=== PATIENT | male | born 1980 | race Caucasian/White ===

== ENCOUNTER 2020-12-14 15:36 | Outpatient (REF) | payer OTHER, SELFPAY | END 2020-12-14 15:37 | disposition home or self-care (01) | LOC: HO.LAB 15:36 | PROVIDERS: PCP Internal Medicine; Visit Provider Surgery | DX: Z85.038 Personal history of other malignant neoplasm of large intestine (principal) | CPT/HCPCS: 36415; 82378 ==

== ENCOUNTER 2021-01-03 07:30 | Day surgery (SDC) | payer OTHER, SELFPAY ==
--- NOTE | 2021-01-02 10:22 | HO.ANESPROP2 ---
Documented by User: Oksana Swift NP 01/02/21 10:23 HPI - Anesthesia Eval Consult details Narrative: 40yo M for Colonoscopy, Poss Polypectomy PMFSH Active Problems Active Problems: All Active Problems (Updated 12/27/20 @ 14:27 by Roxy Shafer, [place]) History of colon cancer (Acute) Past Medical History Medical History Elevated cholesterol History of colon cancer Surgical History Surgical History History of colonoscopy History of excision of pilonidal cyst Social History Social History Patient Tobacco Use Status: Current everyday Tobacco user Advance Directives: No Advance Directives Information Provided: Yes (informational brochure mailed) Advance Directives on File: No Meds Allergies Allergy/AdvReac Type Severity Reaction Status Date / Time No Known Allergies Allergy Verified 01/03/21 07:42 [No Known Allergies*] Exam Exam Date and Time: January 02, 2021 1022 Height,Weight and Vital Signs: Height 5 ft 5 in Assessment and Plan Assessment Anesthesia Assessment: Chart Reviewed Documented by User: Gali Martinez MD 01/03/21 08:37 PMFSH Past Medical History Medical History Elevated cholesterol History of colon cancer Surgical History Surgical History History of colonoscopy History of excision of pilonidal cyst History of Problems with Anesthesia: No Social History Social History Patient Tobacco Use Status: Current everyday Tobacco user Advance Directives: No Advance Directives Information Provided: Yes (informational brochure mailed) Advance Directives on File: No Meds Allergies Allergy/AdvReac Type Severity Reaction Status Date / Time No Known Allergies Allergy Verified 01/03/21 07:42 [No Known Allergies*] Exam Airway Mallampati Class: II TM Dist: >3cm Neck ROM: Full Loose/Missing/Broken Teeth: No Heart: RRR Lungs: CTA Assessment and Plan Assessment Anesthesia Assessment: Anesthesia Plan Discussed Final Anesthetic Review History of Problems with Anesthesia: No NPO: Yes ASA Class: II Final Preanesthetic Review: Meds/Allgs Chart Reviewed, Consent Obtained/Reviewed and Anes Risks/Benef Reviewed Patient Risk: Low Procedure Risk: Low Anesthetic Plan Anesthetic Plan: MAC: Disposition: Standard PACU
[2021-01-03 07:45] VITALS: BMI 30.4
[2021-01-03 07:49] VITALS: BP 147/99; PULSE 77; RESP 16; TEMP 36.7; O2SAT 98
[2021-01-03] MEDS: Lactated Ringers 1,000 ML 100 ML IVCONT (07:59)
--- NOTE | 2021-01-03 08:20 | MHC.SHP ---
Pre-Procedural Eval Section A Date of Service: 01/03/21 Section B Chief Complaint: History of colon cancer Allergies: Allergies Allergy/AdvReac Type Severity Reaction Status Date / Time No Known Allergies Allergy Verified 01/03/21 07:42 [No Known Allergies*] Plan I have reviewed the history and physical and performed a pertinent physical examination on my patient. No changes have occurred unless specified.
[2021-01-03 09:13] VITALS: BP 134/88; PULSE 79; RESP 18; TEMP 36.9; O2SAT 99
--- NOTE | 2021-01-03 09:14 | P.OP_ITS ---
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 This was on a long stalk so had been following him with regular colonoscopies. He understands the technique of the procedure as well as the risks, benefits, and alternatives Was brought to the operating placed in left lateral decubitus position under monitored anesthesia care. A full digital rectal was done there were no palpable anal lesions. The tip of the colonoscope was gently introduced through the anal orifice advanced with insufflation all the cecum. The cecum was intubated. The cecum was identified by visualization of the ileocecal valve as well as the appendiceal orifice. The cecal mucosa was unremarkable. The scope was gradually withdrawn with careful examination of the entire colonic mucosa being done with scope withdrawal. The patient had very good bowel prep so it was unlikely that any lesion may have been missed. There was note of occasional diverticuli sigmoid. I carefully examined the area at the level 15 cm and visualize the tattoo marking from before. This was where the previous polyp was removed. I did not see any abnormal mucosa. There was no suggestion of any recurrence of the polyp or any lesion with multiple passes on this area. We continued to withdraw the scope all the way to the rectum. This was examined carefully as well. Anal shelf was unremarkable. The anal canal was un remarkable. The scope was then withdrawn completely with desufflation The patient tolerated procedure well. There were no complications noted. I will recommend repeating the scope in about 2-3 years for surveillance.
[2021-01-03 09:28] VITALS: BP 154/91; PULSE 56; RESP 18; TEMP 36.9; O2SAT 100
== END 2021-01-03 09:54 | disposition home or self-care (01) ==
PROVIDERS: PCP Internal Medicine; Visit Provider Surgery
PROC: 0DJD8ZZ Inspection of Lower Intestinal Tract, Via Natural or Artificial Opening Endoscopic (ICD-10-PCS; CPT 45378; principal; 2021-01-03 08:50)
DX: Z12.11 Encounter for screening for malignant neoplasm of colon (principal); Z85.038 Personal history of other malignant neoplasm of large intestine; K57.30 Diverticulosis of large intestine without perforation or abscess without bleeding
CPT/HCPCS: 45378

== ENCOUNTER → 2021-01-16 16:01 | Outpatient (BNVA) | payer OTHER, SELFPAY | PROVIDERS: PCP Internal Medicine; Visit Provider Surgery ==

== ENCOUNTER 2023-10-07 14:30 | Outpatient (AMB) | payer OTHER, SELFPAY ==
--- NOTE | 2023-10-07 14:35 | A.OFFVIS_ITS ---
Vital Signs 10/07/23 14:36 Height 5 ft 5 in Weight 201 lb BMI 33.4 Intake Visit Reasons: 2-3 year recall colonoscopy from 12/2020 Intake Note: This patient presents 2-3 year recall colonoscopy from 12/2020. Pt c/o; reports no complaints. [employer] Required: No Accompanied by: Self / Same As Patient Allergies No Known Allergies [No Known Allergies*] Allergy (Verified 10/07/23 14:37) Medication List - Last Reconciled 10/07/23 by Alexander Tom MD atorvastatin 40 mg PO DAILY lisinopril 20 mg PO DAILY sodium,potassium,mag sulfates 17.5-3.13-1.6 gram (Suprep Bowel Prep Kit) DILUTE; drink full amount early evening before AND next morning at least 2 hr before procedure; follow w 32 oz. water PO HPI HPI 2-3 year recall colonoscopy from 12/2020: Details: 43-year-old male here for a follow-up colonoscopy. He has a history of a malignant polyp on a stalk at level 20 cm removed endoscopically in 2014. We have been monitoring him with colonoscopy since then. His last colonoscopy was 2020 and this was unremarkable. He denies any GI complaints. He feels well overall. He does not have family history of colon cancer. [facility] Medical History Elevated cholesterol History of colon cancer Surgical History History of colonoscopy (~2020) History of excision of pilonidal cyst History of colonoscopy Social History Patient Tobacco Use Status: Current everyday Tobacco user Review of Systems Const Denies chills and Denies fever(s) Card Denies chest pain, Denies dyspnea and Denies dyspnea on exertion Resp Denies cough, Denies dyspnea and Denies dyspnea on exertion GI Denies hematochezia and Denies change in bowel habits Denies hematuria and Denies difficulty urinating Musc Denies back pain and Denies limited range of motion Neuro Denies focal weakness and Denies convulsions Psych Denies depression and Denies mood swings Physical Exam Vital Signs: BMI result Body Mass Index 33.4 Const General: comfortable and no acute distress Orientation/consciousness: patient oriented x3 Neck Neck: Yes no lymphadenopathy Resp Auscultation: clear to auscultation bilaterally Cardio Rhythm: regular rhythm GI Palpation (GI): Soft to palpation, nontender and no guarding Neuro General: patient oriented x3 Assessment & Plan Assessment & Plan (1) History of colon cancer: Comment: colon polyp removed endoscopically in 2014 (tubular adenoma)-subsequent follow- up colonoscopies Code(s): Z85.038 - Personal history of other malignant neoplasm of large intestine Category: Medical Plan: He had a malignant rectal polyp removed from the sigmoid colon in 2014. He has been undergoing regular colonoscopies for surveillance I reviewed with him the technique of colonoscopy. I discussed the risks including but not limited to bleeding and perforation, as well as the benefits and alternatives He understands and wants to proceed. Coding Level of Care Code New Pt Level 3 (69860) Diagnoses History of colon cancer Z85.038
[2023-10-07 14:36] VITALS: BMI 33.4
== END 2023-10-07 15:22 | disposition home or self-care (01) ==
PROVIDERS: PCP Internal Medicine; Visit Provider Surgery
DX: Z85.038 Personal history of other malignant neoplasm of large intestine (principal)
CPT/HCPCS: 99213

== ENCOUNTER → 2023-10-07 14:30 | Outpatient (BNVA) | payer OTHER, SELFPAY | PROVIDERS: PCP Internal Medicine; Visit Provider Surgery ==

== ENCOUNTER 2023-11-01 07:57 | Day surgery (SDC) | payer OTHER, SELFPAY ==
[2023-10-30 12:40] VITALS: BMI 33.4
--- NOTE | 2023-10-30 14:57 | HO.ANESPROP2 ---
Documented by User: Oksana Swift NP 10/30/23 14:58 HPI - Anesthesia Eval Consult details Narrative: 43yo M for Colonoscopy, possible Polypectomy PMFSH Active Problems Active Problems: All Active Problems History of colon cancer (Acute) Past Medical History Medical History HTN (hypertension) Elevated cholesterol History of colon cancer Surgical History Surgical History History of surgery on lower extremity History of excision of pilonidal cyst History of colonoscopy History of Problems with Anesthesia: No Social History Social History Patient Tobacco Use Status: Current everyday Tobacco user Advance Directives: No Advance Directives Information Provided: Yes Meds Allergies Allergy/AdvReac Type Severity Reaction Status Date / Time No Known Allergies Allergy Verified 11/01/23 08:03 [No Known Allergies*] Home Medications ?Medication ?Instructions ?Recorded ?Confirmed ?Last Taken ?Type atorvastatin 40 mg tablet 40 mg PO DAILY 10/07/23 11/01/23 Unknown History lisinopril 20 mg tablet 20 mg PO DAILY 10/07/23 11/01/23 10/31/23 History Exam Height,Weight and Vital Signs: Height 5 ft 5 in Weight 91.172 kg Assessment and Plan Assessment Anesthesia Assessment: Chart Reviewed Final Anesthetic Review History of Problems with Anesthesia: No Documented by User: Mariella Whitmore MD 11/01/23 08:13 PMFSH Past Medical History Medical History HTN (hypertension) Elevated cholesterol History of colon cancer Family History Family history of problems with anesthesia: No Surgical History Surgical History History of surgery on lower extremity History of excision of pilonidal cyst History of colonoscopy Social History Social History Patient Tobacco Use Status: Current everyday Tobacco user Advance Directives: No Advance Directives Information Provided: Yes Meds Allergies Allergy/AdvReac Type Severity Reaction Status Date / Time No Known Allergies Allergy Verified 11/01/23 08:03 [No Known Allergies*] Home Medications ?Medication ?Instructions ?Recorded ?Confirmed ?Last Taken ?Type atorvastatin 40 mg tablet 40 mg PO DAILY 10/07/23 11/01/23 Unknown History lisinopril 20 mg tablet 20 mg PO DAILY 10/07/23 11/01/23 10/31/23 History Exam Airway Mallampati Class: II TM Dist: >3cm Heart: rrr Lungs: cta Assessment and Plan Assessment Anesthesia Assessment: Anesthesia Plan Discussed Final Anesthetic Review Family History of Problems with Anesthesia: No NPO: Yes ASA Class: III Final Preanesthetic Review: No Changes in Pt Med Stat, Meds/Allgs Chart Reviewed, Consent Obtained/Reviewed and Anes Risks/Benef Reviewed Patient Risk: Intermediate Procedure Risk: Low Anesthetic Plan Anesthetic Plan: MAC: Disposition: Standard PACU
[2023-11-01 08:07] VITALS: BMI 32.4
[2023-11-01 08:31] VITALS: BP 145/97; PULSE 83; RESP 16; TEMP 36.7; O2SAT 98
[2023-11-01] MEDS: Lactated Ringers 1,000 ML 100 ML IVCONT (08:32)
--- NOTE | 2023-11-01 09:25 | MHC.SHP ---
Pre-Procedural Eval Section A - 24 Hr Update-Section A only Date of Service: 11/01/23 The patient is an INPATIENT: No Changes since office visit: No Cold of Flu in the past 2 weeks, No New Medical Problems, No Changes in Medication and No Patient answered all questions The patient has been examined within 24 hours of the surgical procedure. The History & Physical has been completed within 30 days and I have reviewed it.: Yes Section B - Complete if H&P > 30 days Chief Complaint: Personal history of other malignant neoplasm of Allergies: Allergies Allergy/AdvReac Type Severity Reaction Status Date / Time No Known Allergies Allergy Verified 11/01/23 08:03 [No Known Allergies*] Plan I have reviewed the history and physical and performed a pertinent physical examination on my patient. No changes have occurred unless specified. Time Spent With Patient Time: Total time managing care of this patient today ____ minutes.
--- NOTE | 2023-11-01 09:46 | W.PM.OPN ---
Operative Note Operative Note Date of Service: 11/01/23 Narrative: Preop diagnosis: History of malignant rectal polyp Postop diagnosis: 1. Diverticulosis in the sigmoid and left colon 2. Large external hemorrhoids 3. No lesions seen on the previous polypectomy site Procedure: Colonoscopy Surgeon: Alexander Tom MD The patient is a 43-year-old male who had a malignant rectal polyp removed at level 20 cm 2015. This was on a long stalk. He has been undergoing short interval colonoscopy because of this history. He understands the technique of the planned procedure as well as the risks, benefits, and alternatives The patient was brought to the operating room and placed in left lateral decubitus position under monitored anesthesia care. A surgical time-out was done. A full digital rectal exam was done and this did not reveal any significant anal lesions. The tip of the Olympus colonoscope was gently introduced through the anal orifice advanced with insufflation all the way to the cecum. The cecum was intubated. The cecum was identified by visualization of the ileocecal valve as well as the appendiceal orifice. The cecal mucosa was unremarkable. The scope was gradually withdrawn with careful examination of the entire colonic mucosa being done with scope withdrawal. The patient had adequate bowel prep so it was unlikely that any lesion may have been missed. There was note of diverticulosis in the sigmoid and left colon. We made multiple passes at level 20 cm at the previous polypectomy site. This had been previously inked at that time. There were no lesions in this area. There was no abnormal mucosa. The rectum was reached and there were no lesions seen. The anal canal was unremarkable. The scope was then withdrawn completely with desufflation. The patient tolerated procedure well. There were no immediate complications. In view of his previous history, I may repeat his colonoscopy in the next 3-5 years.
[2023-11-01 09:50] VITALS: BP 135/77; PULSE 80; RESP 12; TEMP 36.1; O2SAT 98
[2023-11-01 10:05] VITALS: BP 124/86; PULSE 63; RESP 12; TEMP 36.1; O2SAT 97
== END 2023-11-01 10:20 | disposition home or self-care (01) ==
PROVIDERS: PCP Internal Medicine; Visit Provider Surgery
PROC: 0DBE8ZZ Excision of Large Intestine, Via Natural or Artificial Opening Endoscopic (ICD-10-PCS; CPT 45378; principal; 2023-11-01 09:50)
DX: Z12.11 Encounter for screening for malignant neoplasm of colon (principal); Z85.038 Personal history of other malignant neoplasm of large intestine; K57.30 Diverticulosis of large intestine without perforation or abscess without bleeding; K64.4 Residual hemorrhoidal skin tags; I10 Essential (primary) hypertension; E78.00 Pure hypercholesterolemia, unspecified; Z79.899 Other long term (current) drug therapy; F17.210 Nicotine dependence, cigarettes, uncomplicated
CPT/HCPCS: 45378; J2704

== ENCOUNTER → 2023-11-01 07:57 | Outpatient (BNV) | payer OTHER, SELFPAY | PROVIDERS: PCP Internal Medicine; Visit Provider Surgery | DX: Z12.11 Encounter for screening for malignant neoplasm of colon (principal); K57.90 Diverticulosis of intestine, part unspecified, without perforation or abscess without bleeding; K64.8 Other hemorrhoids; Z85.038 Personal history of other malignant neoplasm of large intestine | CPT/HCPCS: 45378 ==

== ENCOUNTER 2023-11-14 11:40 | Outpatient (AMB) | payer OTHER, SELFPAY ==
--- NOTE | 2023-11-14 11:40 | MHC.OFFVIS ---
Vital Signs 11/14/23 11:41 BMI Reason not done Patient refused/unable Comment Telehealth visit Intake Visit Reasons: s/p colonoscopy Intake Note: Follow-up colonoscopy. Pt c/o; reports no complaints pertaining to colonoscopy. [employer] Required: No Accompanied by: Self / Same As Patient Allergies No Known Allergies [No Known Allergies*] Allergy (Verified 11/14/23 11:41) HPI HPI s/p colonoscopy: Details: He had undergone a colonoscopy 2 weeks ago as surveillance for his history of a malignant rectal polyp. He tolerated the procedure well and currently denies significant complaints. [facility] Medical History HTN (hypertension) Elevated cholesterol History of colon cancer Surgical History History of colonoscopy (~11/01/23) History of surgery on lower extremity History of excision of pilonidal cyst History of colonoscopy Social History Are you a primary care director to a significant other at home: No Do you presently have visiting nurse or other home services: No Patient Tobacco Use Status: Former Tobacco user Tobacco use type: Cigarette Years Smoked: 25 Review of Systems Const Denies chills and Denies fever(s) GI Denies abdominal pain and Denies hematochezia Telehealth Telehealth Telehealth Platform: Telephone Location of provider rendering services: practice address Location of patient: address on file Patient Identification confirmed using: Name, : Yes Telehealth method: voice only Patient verbally consented to treatment: Yes Patient verbally consented to billing insurance company: Yes Patient informed of any privacy concerns related to visit: Yes Assessment & Plan Assessment & Plan (1) History of colon cancer: Comment: colon polyp removed endoscopically in 2014 (tubular adenoma)-subsequent follow-up colonoscopies Code(s): Z85.038 - Personal history of other malignant neoplasm of large intestine Category: Medical Plan: He has a history of a malignant rectal polyp removed endoscopically. I repeated this colonoscopy 2 weeks ago. This did not reveal any lesions in the area of the polypectomy site. He did have diverticulosis and external hemorrhoids I explained to him that we will repeat his colonoscopy in about 3 years. He understands the plan well. He is comfortable with this. This was a telehealth visit. Coding Level of Care Code Tele Est Pt Level 2 (93084) Diagnoses History of colon cancer Z85.038
== END 2023-11-14 11:40 | disposition home or self-care (01) ==
LOC: HO.HGS 11:40
PROVIDERS: PCP Internal Medicine; Visit Provider Surgery
DX: Z85.038 Personal history of other malignant neoplasm of large intestine (principal)
CPT/HCPCS: 99212

== ENCOUNTER → 2023-11-14 11:40 | Outpatient (BNVA) | payer OTHER, SELFPAY | PROVIDERS: PCP Internal Medicine; Visit Provider Surgery ==